=== PATIENT | female | born 1935 | race Caucasian/White ===

== ENCOUNTER 2021-02-02 10:24 | Inpatient (IN) ==
[2021-02-02] MEDS ORDERED: TYLENOL 500 MG TAB EXTRA STRENGTH PO PRN (11:30)
[2021-02-02 12:00] LABS: BASOPHILS # (AUTO) 0.1 X10^3/uL (0.0-0.1); BASOPHILS % (AUTO) 0.2 % (0.2-1.0); EOSINOPHILS % (AUTO) 0.1 % (0.9-2.9); HEMATOCRIT 34.5 % (36.0-47.0); HEMOGLOBIN 11.3 g/dL (12.0-16.0); LYMPHOCYTES # (AUTO) 1.5 X10^3/uL (1.3-2.9); LYMPHOCYTES % (AUTO) 5.8 % (21.0-51.0); MEAN CORPUSCULAR HEMOGLOBIN 28.4 pg (27.0-34.0); MEAN CORPUSCULAR HGB CONC 32.7 g/dL (33.0-35.0); MEAN CORPUSCULAR VOLUME 86.8 fL (80.0-100.0); MEAN PLATELET VOLUME 8.8 fL (7.4-11.0); MONOCYTES # (AUTO) 1.2 x10^3/uL (0.3-0.8); MONOCYTES % (AUTO) 4.7 % (0.0-13.0); NEUTROPHILS # (AUTO) 22.9 x10^3/uL (2.2-4.8); NEUTROPHILS % (AUTO) 89.2 % (42.0-75.0); PLATELET COUNT 360 X10^3/uL (150.0-450.0); RED BLOOD COUNT 3.98 X10^6/uL (3.5-5.4); WHITE BLOOD COUNT 25.7 X10^3/uL (3.6-10.0)
[2021-02-02] MEDS ORDERED: LEVAQUIN TAB 500 MG PO SCH (12:00)
[2021-02-02 12:13] LABS: PLATELET MORPHOLOGY COMMENT NORMAL (NORMAL)
[2021-02-02 12:24] LABS: ALBUMIN 2.4 g/dL (3.4-5.0); CALCIUM 9.5 mg/dL (8.5-10.1); CARBON DIOXIDE 29.5 mmol/L (21-32); COR CA(FOR HYPOALB) 10.8 mg/dL (8.5-10.1); CREATININE 1.23 mg/dL (0.55-1.02); TOTAL PROTEIN 7.6 g/dL (6.4-8.2)
[2021-02-02] MEDS ORDERED: NORCO 5/325 MG TAB ONE (15:27)
[2021-02-02] MEDS: NORCO 5/325 MG TAB PO PRN (15:30)
[2021-02-02 16:04] LABS: BILIRUBIN,URINE 1+ (NEGATIVE); BLOOD/HEMOGLOBIN,URINE 1+ (NEGATIVE); GLUCOSE, URINE NEGATIVE (NEGATIVE); KETONES,URINE 1+ (NEGATIVE); LEUKOCYTE ESTERASE ,URINE 1+ (NEGATIVE); NITRITES,URINE NEGATIVE (NEGATIVE); PROTEIN,URINE 2+ (NEGATIVE); UROBILINOGEN,URINE NORMAL (NORMAL)
[2021-02-02 16:26] LABS: APPEARANCE,URINE HAZY (CLEAR); COLOR,URINE DARK YELLOW (YELLOW)
[2021-02-02 16:28] LABS: SQUAMOUS EPITHELIAL CELL,UR MODERATE /HPF (NEGATIVE)
[2021-02-02 16:29] LABS: BACTERIA,URINE 2+ /HPF (NEGATIVE); CALCIUM OXALATE CRYSTALS,UR FEW /HPF (NEGATIVE); GRANULAR CASTS,URINE FEW /LPF (NEGATIVE); MUCUS,URINE FEW /HPF (NEGATIVE)
[2021-02-02] MEDS ORDERED: NEURONTIN CAP 100 MG PO PRN (20:05)
--- NOTE | 2021-02-02 20:17 | DR.H&P ---
H&P - History & Physical for Day of: H&P Date: 02/02/21 - Chief Complaint Chief Complaint: THE PATIENT IS A 85-YEAR-OLD WHITE FEMALE WHO IS A RESIDENT OF [place]. PATIENT HAD RECENT BLOOD WORK WITH WHITE BLOOD CELL COUNT OF 24.2. PATIENT DOES HAVE URINARY TRACT INFECTION AND HAS BEEN ON MACROBID SINCE 01/27/21. PATIENT DOES HAVE WANED TO THE SACRUM WHICH IS UNSTAGEABLE. PATIENT IS [facility]. pATIENT SUBSEQUENTLY ADMITTED FOR FURTHER EVALUATION AND MANAGEMENT. ON ASSESSMENT PATIENT IS COUGHING WHILE SIPPING ON LIQUIDS. PATIENT DOES RESPOND. URINE IS NOTED TO BE DARK AND CLOUDY WITH SEDIMENT IN TUBING. FAMILY IS AT BEDSIDE. DOES STATE THAT A CHILD SHE HAD A PENICILLIN ALLERGY WHERE IT HURT HER STOMACH BUT DENIED ANY OTHER SYMPTOMS. PATIENT DENIES ANY PAIN. - Past Medical History Past Medical History: Coronary Artery Disease, Hypertension, Dyslipidemia, Diabetes, Anxiety, Hypothyroidism, Anemia, GERD, Gout, CHF - Past Surgical History Surgical History: Ortho Surgery - Family History Family Medical History: Diabetes Mellitus, Cancer - Social History Does patient currently use any type of tobacco product: No Have you used tobacco products in the last 12 months: No Type of Tobacco Use: None Does any household member use tobacco: No Alcohol Use: None Drug Use: None Risks, benefits, and alternatives of opioids discussed: No Prescription drug monitoring program results: PDMP reviewed and no concerns identified - Medications Home Medications: aspirin Allergy (Verified 01/31/21 00:15) clarithromycin [From Biaxin] Allergy (Verified 01/31/21 00:15) Penicillins Allergy (Verified 01/31/21 00:15) CONTINUE taking the following medications ascorbic acid (vitamin C) [Vitamin C] 500 mg PO BID 02/02/21 [History] atorvastatin [Lipitor] 20 mg PO HS 02/02/21 [History] escitalopram oxalate [Lexapro] 5 mg PO HS 02/02/21 [History] nutritional supplements [Galdino] 1 ea PO DAILY 02/02/21 [History] zinc 50 mg PO DAILY 02/02/21 [History] - Review of Systems Constitutional: No Symptoms Reported Eyes: No Symptoms Reported ENT: No Symptoms Reported Respiratory: Cough Cardiovascular: No Symptoms Reported Gastrointestinal: No Symptoms Reported Genitourinary: No Symptoms Reported Musculoskeletal: No Symptoms Reported Skin: No Symptoms Reported Neurological: No Symptoms Reported - Physical Exam Vital Signs: Temperature 99.1 F Pulse Rate [Left Brachial] 108 Respiratory Rate 22 Blood Pressure [Left Arm] 109/57 O2 Sat by Pulse Oximetry 92 Oriented: Person Eyes: Normal Ear: Normal Nose: Normal Throat: Normal Respiratory: Clear Throughout Cardiovascular: Tachycardia : Other (DARK YELLOW WITH SEDIMENT) Auscultation: Bowel Sounds: Normal Palpation: Normal Tenderness: Normal Skin: Decreased Turgur, Wound (SACRUM UNSTAGEABLE ULCER) Musculoskeletal: Motor Deficit (WEAKNESS) Psychiatric: Normal Mood Description: Calm Affect: Normal Speech Pattern: Delayed - Assessment/Plan (1) Leukocytosis Status: Acute Plan: urine culture sensitive to Levaquin and ertapenem (2) Urinary tract infection Status: Acute Plan: Levaquin and ertapenem (3) Sacral decubitus ulcer Qualifiers: Pressure injury stage: unstageable Qualified Code(s): L89.150 - Pressure ulcer of sacral region, unstageable Status: Acute Plan: ertapenem IV. Surgical consult (4) Dehydration Status: Acute Plan: gentle IV hydration (5) Dysphagia Status: Acute Plan: consider barium swallow - Review H&P Reviewed: Yes Patient was examined?: Yes - Allergies Allergies/Adverse Reactions: Allergies Allergy/AdvReac Type Severity Reaction Status Date / Time aspirin Allergy Verified 01/31/21 00:15 clarithromycin [From Biaxin] Allergy Verified 01/31/21 00:15 Penicillins Allergy Verified 01/31/21 00:15
[2021-02-02] MEDS ORDERED: INVANZ INJ 1 GM VIAL 1 GM in NS 100 ML IV + SPIKE MINIBAG* 100 ML IV SCH (21:00)
[2021-02-02] MEDS ORDERED: LIPITOR TAB 20 MG PO SCH (21:00)
[2021-02-02] MEDS ORDERED: ESCITALOPRAM OXALATE 5 MG PO SCH (21:00)
[2021-02-02] MEDS: LEXAPRO PO SCH (21:14)
[2021-02-02] MEDS: NORCO 5/325 MG TAB PO SCH (21:14)
[2021-02-02] MEDS: COREG TAB 3.125 MG PO SCH (21:14)
[2021-02-02] MEDS: LIPITOR TAB 20 MG PO SCH (21:14)
[2021-02-02] MEDS: NS 1000 ML 1,000 ML IV SCH (21:15)
[2021-02-02] MEDS: SINGULAIR TAB 10 MG PO SCH (21:15)
[2021-02-02] MEDS: VITAMIN C PO SCH (21:15)
[2021-02-02] MEDS ORDERED: LEXAPRO ONE (21:20)
--- NOTE | 2021-02-02 22:15 | RAD ---
PROCEDURE: Chest X-ray 1 View .HISTORY: COUGH .TECHNIQUE: AP view .COMPARISON: 03/06/2020.TECHNICAL QUALITY: Satisfactory .FINDINGS:Normal size heart .Mediastinum and hilar regions show no masses or lymphadenopathy .Normal central vascularity .No pulmonary consolidation, masses, pleural fluid, or pneumothorax. Some interstitial prominence that is unchanged.No acute bony abnormality .IMPRESSION:1. No active cardiopulmonary disease .2. Unchanged mild interstitial fibrosis.Electronically signed by: Home Avila (Feb 02, 2021 22:13:34)
[2021-02-03] MEDS: NORCO 5/325 MG TAB PO PRN (04:08)
[2021-02-03] MEDS ORDERED: HumuLIN R ONE (05:57)
[2021-02-03] MEDS: HumuLIN R SUBCUT PRN ×2 (06:09→22:06)
[2021-02-03] MEDS: MAG-OX TAB PO SCH (08:37)
[2021-02-03] MEDS: VITAMIN C PO SCH ×2 (08:37→20:44)
[2021-02-03] MEDS: NORCO 5/325 MG TAB PO SCH ×4 (08:40→20:43)
[2021-02-03] MEDS: ZYLOPRIM PO SCH (08:40)
[2021-02-03 08:41] LABS: BASOPHILS # (AUTO) 0.2 X10^3/uL (0.0-0.1); BASOPHILS % (AUTO) 1.6 % (0.2-1.0); EOSINOPHILS # (AUTO) 0.2 x10^3/uL (0.0-0.2); EOSINOPHILS % (AUTO) 1.5 % (0.9-2.9); HEMATOCRIT 30.5 % (36.0-47.0); LYMPHOCYTES # (AUTO) 1.1 X10^3/uL (1.3-2.9); MEAN CORPUSCULAR HEMOGLOBIN 28.8 pg (27.0-34.0); MEAN CORPUSCULAR HGB CONC 32.9 g/dL (33.0-35.0); MEAN CORPUSCULAR VOLUME 87.6 fL (80.0-100.0); MEAN PLATELET VOLUME 8.8 fL (7.4-11.0); MONOCYTES # (AUTO) 1.1 x10^3/uL (0.3-0.8); MONOCYTES % (AUTO) 8.1 % (0.0-13.0); NEUTROPHILS # (AUTO) 10.7 x10^3/uL (2.2-4.8); NEUTROPHILS % (AUTO) 80.8 % (42.0-75.0); PLATELET COUNT 278 X10^3/uL (150.0-450.0); RED BLOOD COUNT 3.48 X10^6/uL (3.5-5.4); RED CELL DISTRIBUTION WIDTH 16.4 % (11.6-16.5); WHITE BLOOD COUNT 13.2 X10^3/uL (3.6-10.0)
[2021-02-03] MEDS: ZyrTEC TAB 10 MG PO SCH (08:41)
[2021-02-03] MEDS: ZESTRIL TAB 5 MG PO SCH (08:41)
[2021-02-03] MEDS: NexIUM PO SCH (08:41)
[2021-02-03] MEDS: ZINC SULFATE PO SCH (08:41)
[2021-02-03] MEDS: COREG TAB 3.125 MG PO SCH ×2 (08:42→20:45)
[2021-02-03] MEDS: SYNTHROID 25 mcg TAB PO SCH (08:42)
[2021-02-03 08:51] LABS: CALCIUM 8.6 mg/dL (8.5-10.1); CARBON DIOXIDE 27.7 mmol/L (21-32); COR CA(FOR HYPOALB) 10.2 mg/dL (8.5-10.1); CREATININE 1.14 mg/dL (0.55-1.02); TOTAL PROTEIN 6.6 g/dL (6.4-8.2)
[2021-02-03] MEDS ORDERED: PATIENT'S HOME MEDICATION (Magnesium Oxide 400 mg magnesium Tablet) PO SCH (09:00)
[2021-02-03] MEDS ORDERED: PATIENT'S HOME MEDICATION (Zinc 50 mg Tablet) PO SCH (09:00)
[2021-02-03] MEDS ORDERED: PATIENT'S HOME MEDICATION (Levocetirizine 5 mg tablet) PO SCH (09:00)
[2021-02-03] MEDS ORDERED: LEVAQUIN PREMIX IV 500 MG 500 MG/100 ML BAG IV SCH (09:00)
[2021-02-03] MEDS: PLAVIX PO SCH (10:00)
[2021-02-03 11:19] VITALS: BMI 23.6
[2021-02-03] MEDS: LEVAQUIN PREMIX IV 250 MG 250 MG/50 ML BAG IV SCH (14:00)
[2021-02-03] MEDS: NS 1000 ML 1,000 ML IV SCH (14:27)
--- NOTE | 2021-02-03 14:53 | DR.PROGNOT ---
Hospital Progress Notes - Progress Note for Day of: Progress Note Date: 02/03/21 - Chief Complaint Chief Complaint: no changes . frequent dysphagia and coughing while eating or drinking . no changes in sacral ulcer .. - Past Medical Family Social History Past Med/Fam/Surg Hx: No changes since H&P Allergies: Allergies aspirin Allergy (Verified 01/31/21 00:15) clarithromycin [From Biaxin] Allergy (Verified 01/31/21 00:15) Penicillins Allergy (Verified 01/31/21 00:15) - Review Of Systems ROS: No change since H&P - Vital Signs Vital Signs: Temperature 98.8 F Pulse Rate [Left Brachial] 104 Respiratory Rate 24 Blood Pressure [Left Arm] 132/69 O2 Sat by Pulse Oximetry 94 - Physical Exam Oriented: Person Eyes: Normal Ear: Normal Nose: Normal Throat: Normal Cardiovascular: Tachycardia : Other (DARK YELLOW WITH SEDIMENT) GI:Auscultation: Normal GI:Palpation: Normal GI: Tenderness: Normal Skin: Decreased Turgur, Wound (3 x 3 cm sacral ulcer stage 2 .. minimal drainage .no necrosis or abscess formation .) Musculoskeletal: Motor Deficit (WEAKNESS) Psychiatric: Normal Mood Description: Calm Affect: Normal Speech Pattern: Clear - Laboratory and Diagnostics Result Diagrams: 02/03/21 08:30 02/03/21 08:30 Labs: 02/02/21 15:48 Urine,Clean Catch Urine Culture - Preliminary Laboratory WBC 13.2 X10^3/uL (3.6-10.0) H D 02/03/21 08:30 RBC 3.48 X10^6/uL (3.5-5.4) L 02/03/21 08:30 Hgb 10.0 g/dL (12.0-16.0) L 02/03/21 08:30 Hct 30.5 % (36.0-47.0) L 02/03/21 08:30 MCV 87.6 fL (80.0-100.0) 02/03/21 08:30 MCH 28.8 pg (27.0-34.0) 02/03/21 08:30 MCHC 32.9 g/dL (33.0-35.0) L 02/03/21 08:30 RDW 16.4 % (11.6-16.5) 02/03/21 08:30 Plt Count 278 X10^3/uL (150.0-450.0) 02/03/21 08:30 Plt Count Comment Adequate (ADEQUATE) 02/02/21 11:45 MPV 8.8 fL (7.4-11.0) 02/03/21 08:30 Neut % (Auto) 80.8 % (42.0-75.0) H 02/03/21 08:30 Lymph % (Auto) 8.0 % (21.0-51.0) L 02/03/21 08:30 [place] % (Auto) 8.1 % (0.0-13.0) 02/03/21 08:30 Eos % (Auto) 1.5 % (0.9-2.9) 02/03/21 08:30 Baso % (Auto) 1.6 % (0.2-1.0) H 02/03/21 08:30 Neut # (Auto) 10.7 x10^3/uL (2.2-4.8) H 02/03/21 08:30 Lymph # (Auto) 1.1 X10^3/uL (1.3-2.9) L 02/03/21 08:30 [place] # (Auto) 1.1 x10^3/uL (0.3-0.8) H 02/03/21 08:30 Eos # (Auto) 0.2 x10^3/uL (0.0-0.2) 02/03/21 08:30 Baso # (Auto) 0.2 X10^3/uL (0.0-0.1) H 02/03/21 08:30 Absolute Nucleated RBC 0.1 /100WBC 02/03/21 08:30 Total Counted 100 02/02/21 11:45 Neutrophils % (Manual) 90 % (39-76) H 02/02/21 11:45 Lymphocytes % (Manual) 9 % (13-43) L 02/02/21 11:45 Monocytes % (Manual) 1 % (4-9) L 02/02/21 11:45 Plt Morphology Comment Normal (NORMAL) 02/02/21 11:45 RBC Morphology Normal (NORMAL) 02/02/21 11:45 Sodium 141 mmol/L (136-145) 02/03/21 08:30 Corrected Sodium 145 mmol/L (136-145) 02/03/21 08:30 Potassium 4.1 mmol/L (3.5-5.1) 02/03/21 08:30 Chloride 106 mmol/L (98-107) 02/03/21 08:30 Carbon Dioxide 27.7 mmol/L (21-32) 02/03/21 08:30 BUN 56 mg/dL (7-18) H 02/03/21 08:30 Creatinine 1.14 mg/dL (0.55-1.02) H 02/03/21 08:30 Est GFR (MDRD) Af Amer 58 (>60) L 02/03/21 08:30 Est GFR (MDRD) Non-Af 48 (>60) L 02/03/21 08:30 Glucose 271 mg/dL (65-99) H 02/03/21 08:30 POC Glucose (mg/dL) 221 mg/dL (65-99) H 02/03/21 11:06 Calcium 8.6 mg/dL (8.5-10.1) 02/03/21 08:30 Corrected Calcium 10.2 mg/dL (8.5-10.1) H 02/03/21 08:30 Total Bilirubin 0.30 mg/dL (0.2-1.0) 02/03/21 08:30 AST 21 Units/L (15-37) 02/03/21 08:30 ALT 18 Units/L (12-78) 02/03/21 08:30 Alkaline Phosphatase 152 Units/L (46-116) H 02/03/21 08:30 Total Protein 6.6 g/dL (6.4-8.2) 02/03/21 08:30 Albumin 2.0 g/dL (3.4-5.0) L 02/03/21 08:30 Globulin 4.6 g/dL (2.5-4.5) H 02/03/21 08:30 Albumin/Globulin Ratio 0.4 Ratio (1.1-2.1) L 02/03/21 08:30 Specimen Type Catherized urine 02/02/21 15:45 Urine Color Dark yellow (YELLOW) 02/02/21 15:45 Urine Appearance Hazy (CLEAR) 02/02/21 15:45 Urine pH 5.0 (5.0 - 8.0) 02/02/21 15:45 Ur Specific [place] 1.025 (1.000-1.030) 02/02/21 15:45 Urine Protein 2+ (NEGATIVE) 02/02/21 15:45 Urine Glucose (UA) Negative (NEGATIVE) 02/02/21 15:45 Urine Ketones 1+ (NEGATIVE) 02/02/21 15:45 Urine Occult Blood 1+ (NEGATIVE) 02/02/21 15:45 Urine Nitrite Negative (NEGATIVE) 02/02/21 15:45 Urine Bilirubin 1+ (NEGATIVE) 02/02/21 15:45 Urine Urobilinogen Normal (NORMAL) 02/02/21 15:45 Ur Leukocyte Esterase 1+ (NEGATIVE) 02/02/21 15:45 Urine RBC 3-5 /HPF (0-3) A 02/02/21 15:45 Urine WBC 3-5 /HPF (0-5) 02/02/21 15:45 Ur Squamous Epith Cells Moderate /HPF (NEGATIVE) 02/02/21 15:45 Calcium Oxalate Crystal Few /HPF (NEGATIVE) 02/02/21 15:45 Urine Bacteria 2+ /HPF (NEGATIVE) 02/02/21 15:45 Granular Casts Few /LPF (NEGATIVE) 02/02/21 15:45 Urine Mucus Few /HPF (NEGATIVE) 02/02/21 15:45 Ur Culture Indicated? Yes/culture set up 02/02/21 15:45 - Assessment and Plan 1: UTI , DM , sacral decubitus ulcer ,. possible aspiration . same local care , IV ATB . hydration and nutritional support . may need PEG feeding tube .. ( family is thinking about that ..Pt is DNR ) - Problem Patient Problems: Patient Problems Urinary tract infection (Acute) N39.0 Sacral decubitus ulcer (Acute) L89.159 Dehydration (Acute) E86.0 Leukocytosis (Acute) D72.829 Dysphagia (Acute) R13.10
[2021-02-03] MEDS: LOVENOX INJ 40 MG SYR SC SCH (15:11)
[2021-02-03] MEDS ORDERED: LEXAPRO ONE (19:58)
[2021-02-03] MEDS: SINGULAIR TAB 10 MG PO SCH (20:45)
[2021-02-03] MEDS: LEXAPRO PO SCH (20:45)
[2021-02-03] MEDS: LIPITOR TAB 20 MG PO SCH (20:45)
[2021-02-03] MEDS: SNACK - Diabetic Appropriate PO SCH (20:46)
[2021-02-03] MEDS ORDERED: NS 50 ML IV 50 ML IV ONE (22:22)
[2021-02-03] MEDS ORDERED: INVANZ INJ 1 GM VIAL ONE (22:22)
[2021-02-03] MEDS: INVANZ INJ 1 GM VIAL 0.5 GM in NS 50 ML IV 50 ML IV SCH (22:36)
[2021-02-04] MEDS: NS 1000 ML 1,000 ML IV SCH ×2 (05:24→18:26)
[2021-02-04 06:16] LABS: BASOPHILS # (AUTO) 0.1 X10^3/uL (0.0-0.1); BASOPHILS % (AUTO) 0.7 % (0.2-1.0); EOSINOPHILS # (AUTO) 0.3 x10^3/uL (0.0-0.2); EOSINOPHILS % (AUTO) 5.1 % (0.9-2.9); HEMATOCRIT 32.8 % (36.0-47.0); HEMOGLOBIN 10.8 g/dL (12.0-16.0); LYMPHOCYTES % (AUTO) 15.1 % (21.0-51.0); MEAN CORPUSCULAR HEMOGLOBIN 28.9 pg (27.0-34.0); MEAN CORPUSCULAR VOLUME 87.7 fL (80.0-100.0); MEAN PLATELET VOLUME 9.1 fL (7.4-11.0); MONOCYTES # (AUTO) 0.7 x10^3/uL (0.3-0.8); MONOCYTES % (AUTO) 10.4 % (0.0-13.0); NEUTROPHILS # (AUTO) 4.7 x10^3/uL (2.2-4.8); NEUTROPHILS % (AUTO) 68.7 % (42.0-75.0); PLATELET COUNT 230 X10^3/uL (150.0-450.0); RED BLOOD COUNT 3.74 X10^6/uL (3.5-5.4); RED CELL DISTRIBUTION WIDTH 16.5 % (11.6-16.5); WHITE BLOOD COUNT 6.8 X10^3/uL (3.6-10.0)
[2021-02-04] MEDS: HumuLIN R SUBCUT PRN ×3 (06:20→22:41)
[2021-02-04 06:34] LABS: ALANINE AMINOTRANSFERASE 22 Units/L (12-78); ALBUMIN 1.9 g/dL (3.4-5.0); ALKALINE PHOSPHATASE 136 Units/L (46-116); ASPARTATE AMINO TRANSFERASE 23 Units/L (15-37); BLOOD UREA NITROGEN 29 mg/dL (7-18); CALCIUM 8.5 mg/dL (8.5-10.1); CHLORIDE 109 mmol/L (98-107); COR CA(FOR HYPOALB) 10.2 mg/dL (8.5-10.1); COR NA(FOR HYPERGLY) 144 mmol/L (136-145); CREATININE 0.71 mg/dL (0.55-1.02); SODIUM 142 mmol/L (136-145); TOTAL PROTEIN 6.7 g/dL (6.4-8.2); eGFR NON BLACK RACES > 60 (>60)
[2021-02-04] MEDS: LOVENOX INJ 40 MG SYR SC SCH (10:10)
[2021-02-04] MEDS: COREG TAB 3.125 MG PO SCH ×2 (10:11→20:58)
[2021-02-04] MEDS: MAG-OX TAB PO SCH (10:11)
[2021-02-04] MEDS: NexIUM PO SCH (10:12)
[2021-02-04] MEDS: PLAVIX PO SCH (10:12)
[2021-02-04] MEDS: ZESTRIL TAB 5 MG PO SCH (10:13)
[2021-02-04] MEDS: VITAMIN C PO SCH ×2 (10:13→20:58)
[2021-02-04] MEDS: SYNTHROID 25 mcg TAB PO SCH (10:13)
[2021-02-04] MEDS: ZYLOPRIM PO SCH (10:14)
[2021-02-04] MEDS: ZINC SULFATE PO SCH (10:14)
[2021-02-04] MEDS: ZyrTEC TAB 10 MG PO SCH (10:15)
[2021-02-04] MEDS: NORCO 5/325 MG TAB PO SCH ×4 (10:15→21:00)
[2021-02-04] MEDS ORDERED: BACTROBAN TOPICAL OINT ONE (13:10)
[2021-02-04] MEDS: LEVAQUIN PREMIX IV 250 MG 250 MG/50 ML BAG IV SCH (14:19)
[2021-02-04] MEDS ORDERED: LEXAPRO ONE (20:18)
[2021-02-04] MEDS: SNACK - Diabetic Appropriate PO SCH (20:35)
[2021-02-04] MEDS: SINGULAIR TAB 10 MG PO SCH (20:59)
[2021-02-04] MEDS: LEXAPRO PO SCH (20:59)
[2021-02-04] MEDS: LIPITOR TAB 20 MG PO SCH (21:01)
[2021-02-04] MEDS ORDERED: NS 50 ML IV 50 ML IV ONE (22:16)
[2021-02-04] MEDS ORDERED: INVANZ INJ 1 GM VIAL ONE (22:16)
[2021-02-04] MEDS: INVANZ INJ 1 GM VIAL 0.5 GM in NS 50 ML IV 50 ML IV SCH (22:36)
[2021-02-05] MEDS: NS 1000 ML 1,000 ML IV SCH (06:03)
[2021-02-05 06:14] LABS: BASOPHILS # (AUTO) 0.1 X10^3/uL (0.0-0.1); EOSINOPHILS # (AUTO) 0.3 x10^3/uL (0.0-0.2); EOSINOPHILS % (AUTO) 5.1 % (0.9-2.9); HEMOGLOBIN 10.5 g/dL (12.0-16.0); LYMPHOCYTES # (AUTO) 0.9 X10^3/uL (1.3-2.9); LYMPHOCYTES % (AUTO) 16.6 % (21.0-51.0); MEAN CORPUSCULAR HGB CONC 33.9 g/dL (33.0-35.0); MEAN CORPUSCULAR VOLUME 85.7 fL (80.0-100.0); MEAN PLATELET VOLUME 8.7 fL (7.4-11.0); MONOCYTES # (AUTO) 0.7 x10^3/uL (0.3-0.8); MONOCYTES % (AUTO) 12.6 % (0.0-13.0); NEUTROPHILS # (AUTO) 3.6 x10^3/uL (2.2-4.8); NEUTROPHILS % (AUTO) 64.7 % (42.0-75.0); PLATELET COUNT 228 X10^3/uL (150.0-450.0); RED BLOOD COUNT 3.62 X10^6/uL (3.5-5.4); RED CELL DISTRIBUTION WIDTH 15.8 % (11.6-16.5); WHITE BLOOD COUNT 5.6 X10^3/uL (3.6-10.0)
[2021-02-05 06:25] LABS: ALANINE AMINOTRANSFERASE 22 Units/L (12-78); ALBUMIN 1.9 g/dL (3.4-5.0); ALKALINE PHOSPHATASE 137 Units/L (46-116); ASPARTATE AMINO TRANSFERASE 19 Units/L (15-37); BLOOD UREA NITROGEN 12 mg/dL (7-18); CALCIUM 8.2 mg/dL (8.5-10.1); CARBON DIOXIDE 26.7 mmol/L (21-32); CHLORIDE 103 mmol/L (98-107); COR CA(FOR HYPOALB) 9.9 mg/dL (8.5-10.1); COR NA(FOR HYPERGLY) 141 mmol/L (136-145); CREATININE 0.55 mg/dL (0.55-1.02); SODIUM 139 mmol/L (136-145); TOTAL PROTEIN 6.5 g/dL (6.4-8.2); eGFR NON BLACK RACES > 60 (>60)
[2021-02-05] MEDS: COREG TAB 3.125 MG PO SCH (08:09)
[2021-02-05] MEDS: LOVENOX INJ 40 MG SYR SC SCH (08:09)
[2021-02-05] MEDS: MAG-OX TAB PO SCH (08:10)
[2021-02-05] MEDS: NORCO 5/325 MG TAB PO SCH (08:11)
[2021-02-05] MEDS: NexIUM PO SCH (08:11)
[2021-02-05] MEDS: PLAVIX PO SCH (08:11)
[2021-02-05] MEDS: VITAMIN C PO SCH (08:12)
[2021-02-05] MEDS: SYNTHROID 25 mcg TAB PO SCH (08:12)
[2021-02-05] MEDS: ZINC SULFATE PO SCH (08:13)
[2021-02-05] MEDS: ZyrTEC TAB 10 MG PO SCH (08:13)
[2021-02-05] MEDS: ZYLOPRIM PO SCH (08:13)
[2021-02-05] MEDS: ZESTRIL TAB 5 MG PO SCH (08:13)
[2021-02-05 10:22] VITALS: BP 160/74
[2021-02-05] MEDS ORDERED: VIBRAMYCIN PO SCH (21:00)
[2021-02-05] MEDS ORDERED: REQUIP PO SCH (21:00)
== END 2021-02-05 12:00 | DRG 690 ==
LOC: MED/SURG 11:10
PROVIDERS: ADMIT Internal Medicine; ATTEND Internal Medicine
DX: N39.0 Urinary tract infection, site not specified; E78.2 Mixed hyperlipidemia; R13.11 Dysphagia, oral phase; E86.0 Dehydration; B96.4 Proteus (mirabilis) (morganii) as the cause of diseases classified elsewhere; I10 Essential (primary) hypertension; K21.9 Gastro-esophageal reflux disease without esophagitis; E11.622 Type 2 diabetes mellitus with other skin ulcer; L89.150 Pressure ulcer of sacral region, unstageable; I25.10 Atherosclerotic heart disease of native coronary artery without angina pectoris; E03.8 Other specified hypothyroidism; B95.62 Methicillin resistant Staphylococcus aureus infection as the cause of diseases classified elsewhere; E11.65 Type 2 diabetes mellitus with hyperglycemia; F41.8 Other specified anxiety disorders

== ENCOUNTER 2022-09-04 08:27 | Inpatient (IN) ==
--- NOTE | 2022-09-04 08:46 | DR.AMS ---
HPI Time Seen Time Seen by Provider: 09/04/22 08:46 Complaint Cheif Complaint Doctors Comments: 86 y/o [place] sent from the [place] for evaluation. Found to have altered mental status this am. Pt somnolent, difficult to arouse. Running a low grade temp. Pt unable to offer complaints. No report of vomiting, diarrhea from the [place]. Pt is a DNR. COVID-19 Coronavirus risk:travel/contact w/high risk person: No Has patient experienced Coronavirus symptoms: No Reviewed Nurses Notes Reviewed: Yes Source History Provided: Shelter Mode of Arrival Mode of Arrival: Stretcher Timing Symptom Onset: Known Onset of Symptoms Start Date: 09/04/22 Onset of Symptoms Start Time: 08:00 PMH PMH Past Medical History: Anemia, Anxiety, CHF, Coronary Artery Disease, Diabetes, Dyslipidemia, GERD, Gout, Hypertension and Hypothyroidism Past Surgical History: Yes Surgical History: Ortho Surgery Family History Family Medical History: Diabetes Mellitus and Cancer Social History Do you use any recreational Drugs:: No Travel Risk Coronavirus risk:travel/contact w/high risk person: No Has patient experienced Coronavirus symptoms: No Infectious screening Isolation: Standard ROS Review of Systems Unable to Obtain Due To: Altered mental status PE Vitals Vital Signs: Temp Pulse Resp BP BP Pulse Ox O2 Del Method 05/08/21 07:35 167/74 02/05/21 09:10 09/04/22 09:12 130 H 31 H 76/51 95 Nasal Cannula 09/04/22 08:57 102.9 F H 133 H 24 95 Nasal Cannula 09/04/22 08:42 136 H 26 H 86/51 94 L Nasal Cannula 09/04/22 09:15 16 09/04/22 09:00 102.9 F H 09/04/22 08:39 99.1 F 136 H 24 88/52 94 L Nasal Cannula 04/27/22 10:30 130/73 O2 Flow Rate FiO2 05/08/21 07:35 02/05/21 09:10 28 09/04/22 09:12 2 09/04/22 08:57 2 09/04/22 08:42 2 09/04/22 09:15 09/04/22 09:00 09/04/22 08:39 04/27/22 10:30 General General Appearance: Obtunded (does not respond to verbal or noxious sti mulation.) Respiratory Respiratory Exam: Normal Lung Sounds Bilat and Other (tachypnea) Cardiovascular Cardiovascular Exam: Regular Rate, Normal Rhythm, Tachycardia and Normal Heart Sounds Abdominal Exam Abdominal Exam: Normal Bowel Sounds and Soft; negative Tenderness Extremities Extremities Exam: Edema (mild, lower exts) Skin Skin Exam: Warm and Dry COURSE Treatment Treatment: 86 y/o female sent from [place]. + tachycardia, low BP, altered MS. W/u initiated. Pt given IV fluids. 1045 - WBC elevated , 33k. U/a with TNTC WBCs. Rest of labs acceptable. Lactic, bicarb ok. Givne IV rocephin. Pulse, BP improving. Pt now yelling out periodically, agitated. Given IV lorazepam. Discus sed with Dr Bingham, will admit. ROR Labs Reviewed Laboratory Results Reviewed?: Yes Result Diagrams: 09/04/22 08:55 09/04/22 08:55 Laboratory: WBC 33.4 X10^3/uL (3.6-10.0) H* 09/04/22 08:55 RBC 3.90 X10^6/uL (3.5-5.4) 09/04/22 08:55 Hgb 10.8 g/dL (12.0-16.0) L 09/04/22 08:55 Hct 33.6 % (36.0-47.0) L 09/04/22 08:55 MCV 86.1 fL (80.0-100.0) 09/04/22 08:55 MCH 27.7 pg (27.0-34.0) 09/04/22 08:55 MCHC 32.2 g/dL (33.0-35.0) L 09/04/22 08:55 RDW 16.0 % (11.6-16.5) 09/04/22 08:55 Plt Count 289 X10^3/uL (150.0-450.0) 09/04/22 08:55 Plt Count Comment Adequate (ADEQUATE) 09/04/22 08:55 MPV 8.9 fL (7.4-11.0) 09/04/22 08:55 Neut % (Auto) 89.3 % (42.0-75.0) H 09/04/22 08:55 Lymph % (Auto) 4.5 % (21.0-51.0) L 09/04/22 08:55 [place] % (Auto) 5.9 % (0.0-13.0) 09/04/22 08:55 Eos % (Auto) 0.1 % (0.9-2.9) L 09/04/22 08:55 Baso % (Auto) 0.2 % (0.2-1.0) 09/04/22 08:55 Neut # (Auto) 29.8 x10^3/uL (2.2-4.8) H 09/04/22 08:55 Lymph # (Auto) 1.5 X10^3/uL (1.3-2.9) 09/04/22 08:55 [place] # (Auto) 2.0 x10^3/uL (0.3-0.8) H 09/04/22 08:55 Eos # (Auto) 0.0 x10^3/uL (0.0-0.2) 09/04/22 08:55 Baso # (Auto) 0.1 X10^3/uL (0.0-0.1) 09/04/22 08:55 Absolute Nucleated RBC 0.0 /100WBC 09/04/22 08:55 Total Counted 100 09/04/22 08:55 Neutrophils % (Manual) 85 % (39-76) H 09/04/22 08:55 Band Neutrophils % 5 % (0-10) 09/04/22 08:55 Lymphocytes % (Manual) 5 % (13-43) L 09/04/22 08:55 Monocytes % (Manual) 4 % (4-9) 09/04/22 08:55 Metamyelocytes % 1 09/04/22 08:55 Plt Morphology Comment Normal (NORMAL) 09/04/22 08:55 RBC Morphology Normal (NORMAL) 09/04/22 08:55 Sodium 133 mmol/L (136-145) L 09/04/22 08:55 Corrected Sodium 134 mmol/L (136-145) L 09/04/22 08:55 Potassium 4.5 mmol/L (3.5-5.1) 09/04/22 08:55 Chloride 99 mmol/L (98-107) 09/04/22 08:55 Carbon Dioxide 27.0 mmol/L (21-32) 09/04/22 08:55 BUN 42 mg/dL (7-18) H 09/04/22 08:55 Creatinine 1.02 mg/dL (0.55-1.02) 09/04/22 08:55 Est GFR (MDRD) Af Amer > 60 (>60) 09/04/22 08:55 Est GFR (MDRD) Non-Af 55 (>60) L 09/04/22 08:55 Glucose 162 mg/dL (65-99) H 09/04/22 08:55 Lactic Acid 1.7 mmol/L (0.4-2.0) 09/04/22 08:55 Calcium 8.9 mg/dL (8.5-10.1) 09/04/22 08:55 Corrected Calcium 10.1 mg/dL (8.5-10.1) 09/04/22 08:55 Total Bilirubin 0.50 mg/dL (0.2-1.0) 09/04/22 08:55 AST 33 Units/L (15-37) 09/04/22 08:55 ALT 19 Units/L (12-78) 09/04/22 08:55 Alkaline Phosphatase 96 Units/L (46-116) 09/04/22 08:55 Total Protein 7.9 g/dL (6.4-8.2) 09/04/22 08:55 Albumin 2.5 g/dL (3.4-5.0) L 09/04/22 08:55 Globulin 5.4 g/dL (2.5-4.5) H 09/04/22 08:55 Albumin/Globulin Ratio 0.5 Ratio (1.1-2.1) L 09/04/22 08:55 Specimen Type Catherized urine 09/04/22 09:05 Urine Color Yellow (YELLOW) 09/04/22 09:05 Urine Appearance Cloudy (CLEAR) 09/04/22 09:05 Urine pH 6.0 (5.0 - 8.0) 09/04/22 09:05 Ur Specific [place] 1.020 (1.000-1.030) 09/04/22 09:05 Urine Protein 3+ (NEGATIVE) 09/04/22 09:05 Urine Glucose (UA) Negative (NEGATIVE) 09/04/22 09:05 Urine Ketones Negative (NEGATIVE) 09/04/22 09:05 Urine Blood 4+ (NEGATIVE) 09/04/22 09:05 Urine Nitrite Negative (NEGATIVE) 09/04/22 09:05 Urine Bilirubin Negative (NEGATIVE) 09/04/22 09:05 Urine Urobilinogen Normal (NORMAL) 09/04/22 09:05 Ur Leukocyte Esterase 3+ (NEGATIVE) 09/04/22 09:05 Urine RBC 5-10 /HPF (0-3) A 09/04/22 09:05 Urine WBC Tntc /HPF (0-5) A 09/04/22 09:05 Ur Squamous Epith Cells Rare /HPF (NEGATIVE) 09/04/22 09:05 Amorphous Sediment 2+ /HPF (NEGATIVE) 09/04/22 09:05 Urine Bacteria 1+ /HPF (NEGATIVE) 09/04/22 09:05 Ur Culture Indicated? Yes/culture set up 09/04/22 09:05 SARS CoV-2 RNA Rapid VANI Negative (NEGATIVE) 09/04/22 10:17 see comments under "Course" Opioid Opioid Risk Tool Age (Isaak box if 16-45): No History of Preadolescent Sexual Abuse: No Total: 0 Total Score Risk Category: Low Risk Copyright: Owen SOUZA predicting aberrant behaviors Discharge Plan Discharge Plan Patient Disposition: HOME, SELF-CARE Condition: Stable Prescriptions: No Action hydrocodone-acetaminophen [[place]] 5-325 mg Tablet 1 tab PO QID clopidogrel 75 mg tablet 75 mg PO DAILY allopurinol 100 mg tablet 100 mg PO DAILY carvedilol 3.125 mg tablet 3.125 mg PO BID esomeprazole magnesium 40 mg capsule,delayed release(DR/EC) 40 mg PO DAILY montelukast 10 mg tablet 10 mg PO HS gabapentin 100 mg capsule 200 mg PO Q12H PRN Janumet 50-500 mg tablet 1 tab PO BID Rx Instructions: 50-500mg bid levocetirizine 5 mg tablet 5 mg PO DAILY magnesium oxide 400 mg magnesium Tablet 400 mg PO DAILY levothyroxine [Synthroid] 25 mcg Tablet 25 mcg PO DAILY escitalopram oxalate [Lexapro] 5 mg Tablet 5 mg PO HS atorvastatin [Lipitor] 20 mg Tablet 20 mg PO HS ascorbic acid (vitamin C) [Vitamin C] 500 mg Tablet 500 mg PO BID zinc 50 mg Tablet 50 mg PO DAILY cyclobenzaprine 10 mg tablet 1 tab PO BID PRN Rx Instructions: 5 mg tab levofloxacin [Levaquin] 250 mg Tablet 250 mg PO QDAY Chloraseptic Throat [place] 1.4 % aerosol,spray 3 spray MUCOUS MEMBRANE ONCE PRN (Reason: Sore Throat) Label Comments: [NO ORIGINAL SIG] Rx Instructions: every 2 hrs prn fentanyl 12 mcg/hr patch 72 hour 1 patch topical Q3D Label Comments: last placed on 09/02/22 baclofen 5 mg tablet 5 tab PO TID methenamine hippurate 1 gram Tablet 1 g PO BID Rx Instructions: ltc give 1mg by mouth bid pantoprazole [Protonix] 40 mg Tablet,Delayed Release (Dr/Ec) 40 mg PO QDAY olopatadine [Pataday Twice Daily Relief] 0.1 % Drops 1 drp OPHTHALMIC (EYE) DAILY Rx Instructions: separate doses by at least 6-8 hours oxycodone 5 mg tablet 5 mg PO Q4HR Rx Instructions: 1 tab 6 times a day related to pain ascorbic acid (vitamin C) 25 mg Tablet 25 mg PO BID Ferrocite Plus 106 mg iron- 1 mg Capsule 1 cap PO QDAY Glucerna 1.5 Valdo 0.08-1.5 gram-kcal/mL Liquid 1 ea PO BID Rx Instructions: 1 can bid Orders to Discharge Patient Discharge Orders: Transfer (Routine); Ordered 09/04/22 Ordered By: Stephen Rousseau
[2022-09-04] MEDS ORDERED: NS 500 ML IV 500 ML IV ONE ×4 (08:47→16:42)
[2022-09-04] MEDS ORDERED: TYLENOL SUPP 650 MG PR ONE (08:59)
[2022-09-04] MEDS ORDERED: TYLENOL SUPP 325 MG ONE (09:00)
[2022-09-04 09:23] LABS: BASOPHILS # (AUTO) 0.1 X10^3/uL (0.0-0.1); EOSINOPHILS % (AUTO) 0.1 % (0.9-2.9); HEMOGLOBIN 10.8 g/dL (12.0-16.0); LYMPHOCYTES # (AUTO) 1.5 X10^3/uL (1.3-2.9)
[2022-09-04 09:23] LABS: BILIRUBIN,URINE NEGATIVE (NEGATIVE); BLOOD/HEMOGLOBIN,URINE 4+ (NEGATIVE); GLUCOSE, URINE NEGATIVE (NEGATIVE); KETONES,URINE NEGATIVE (NEGATIVE); LEUKOCYTE ESTERASE ,URINE 3+ (NEGATIVE); NITRITES,URINE NEGATIVE (NEGATIVE); PROTEIN,URINE 3+ (NEGATIVE); UROBILINOGEN,URINE NORMAL (NORMAL)
[2022-09-04 09:24] LABS: APPEARANCE,URINE CLOUDY (CLEAR); COLOR,URINE YELLOW (YELLOW)
[2022-09-04 09:27] LABS: BASOPHILS % (AUTO) 0.2 % (0.2-1.0); HEMATOCRIT 33.6 % (36.0-47.0); LYMPHOCYTES % (AUTO) 4.5 % (21.0-51.0); MEAN CORPUSCULAR HEMOGLOBIN 27.7 pg (27.0-34.0); MEAN CORPUSCULAR HGB CONC 32.2 g/dL (33.0-35.0); MEAN CORPUSCULAR VOLUME 86.1 fL (80.0-100.0); MEAN PLATELET VOLUME 8.9 fL (7.4-11.0); MONOCYTES % (AUTO) 5.9 % (0.0-13.0); NEUTROPHILS # (AUTO) 29.8 x10^3/uL (2.2-4.8); NEUTROPHILS % (AUTO) 89.3 % (42.0-75.0)
[2022-09-04 09:33] LABS: WHITE BLOOD COUNT 33.4 X10^3/uL (3.6-10.0)
[2022-09-04 09:34] LABS: ALANINE AMINOTRANSFERASE 19 Units/L (12-78); ALBUMIN 2.5 g/dL (3.4-5.0); ALKALINE PHOSPHATASE 96 Units/L (46-116); ASPARTATE AMINO TRANSFERASE 33 Units/L (15-37); BLOOD UREA NITROGEN 42 mg/dL (7-18); CALCIUM 8.9 mg/dL (8.5-10.1); CHLORIDE 99 mmol/L (98-107); COR CA(FOR HYPOALB) 10.1 mg/dL (8.5-10.1); COR NA(FOR HYPERGLY) 134 mmol/L (136-145); CREATININE 1.02 mg/dL (0.55-1.02); SODIUM 133 mmol/L (136-145); TOTAL PROTEIN 7.9 g/dL (6.4-8.2); eGFR NON BLACK RACES 55 (>60)
[2022-09-04 09:35] LABS: BACTERIA,URINE 1+ /HPF (NEGATIVE); SQUAMOUS EPITHELIAL CELL,UR RARE /HPF (NEGATIVE)
[2022-09-04 09:38] LABS: LACTIC ACID 1.7 mmol/L (0.4-2.0)
[2022-09-04 09:51] LABS: BAND NEUTROPHILS % 5 % (0-10); METAMYELOCYTES % 1; PLATELET MORPHOLOGY COMMENT NORMAL (NORMAL)
[2022-09-04] MEDS ORDERED: ROCEPHIN VIAL 1 GRAM IV ONE (10:14)
[2022-09-04] MEDS ORDERED: ROCEPHIN VIAL 1 GRAM ONE (10:18)
[2022-09-04] MEDS ORDERED: ATIVAN INJ 2 MG VIAL IVP ONE (10:44)
[2022-09-04] MEDS ORDERED: ATIVAN INJ 2 MG VIAL ONE (10:46)
[2022-09-04] MEDS ORDERED: D5 1/2 NS 1,000 ML 1,000 ML IV ONE (14:56)
--- NOTE | 2022-09-04 14:58 | RAD ---
HISTORYams, feverSTUDYCHEST, 1 [id number]/25/2021FINDINGSLINES AND TUBES: Left-sided chest wall port is in stable position.HEART/ PULMONARY VASCULATURE: No significant abnormalityLUNGS/ PLEURA: Mildly diminished lung volumes. There is patchy airspace consolidation throughout the right lung, most pronounced within the right mid upper lung. The left lung appears clear of infiltrate. No sizable pleural effusion. No pneumothoraxOTHER: NoneIMPRESSIONFindings most consistent with pneumonia of the right lung.Electronically signed by: Saturnino Stein (Sep 04, 2022 14:57:19)
[2022-09-04] MEDS ORDERED: D5 1/2 NS 1,000 ML 1,000 ML IV SCH (16:00)
[2022-09-04] MEDS: D5 1/2 NS 1,000 ML 1,000 ML IV SCH (16:28)
[2022-09-04] MEDS: ROCEPHIN VIAL 1 GRAM 1 G in NS 100 ML IV 100 ML IV SCH (17:02)
[2022-09-04] MEDS: LEVOPHED 8 MG/250 ML IV *PREMIX 8 MG/250 ML PLAST..BAG IV PRN (17:55)
[2022-09-04] MEDS: TOBRAMYCIN SULFATE 80 MG in NS 100 ML IV 98 ML IV SCH ×2 (18:08→21:20)
--- NOTE | 2022-09-04 18:27 | DR.H&P ---
H&P - History & Physical for Day of: H&P Date: 09/04/22 - Chief Complaint Chief Complaint: AMS - History of Present Illness History of Present Illness: 86 y/o female admitted with AMS, sepsis with hypotension. Pt has been treated with agressive IV hydration, levophed for blood pressure control, continuous cardiac monitoring and supplemental o2. Pt has cultures obtained on admission, chest with resp therapy. pt is on IV rocephin and tobramycin at this time. - Past Medical History Past Medical History: Coronary Artery Disease, Hypertension, Dyslipidemia, Diabetes, Anxiety, Hypothyroidism, Anemia, GERD, Gout, CHF - Past Surgical History Surgical History: Abdominal Surgery, Ortho Surgery - Family History Family Medical History: Diabetes Mellitus, Cancer - Social History Does patient currently use any type of tobacco product: No Have you used tobacco products in the last 12 months: No Type of Tobacco Use: None Alcohol Use: None - Medications Home Medications: aspirin Allergy (Unknown, Unverified 09/04/22 08:36) clarithromycin [From Biaxin] Allergy (Unknown, Unverified 09/04/22 08:36) Penicillins Allergy (Unknown, Unverified 09/04/22 08:36) CONTINUE taking the following medications ascorbic acid (vitamin C) 25 mg tablet 25 mg PO BID 09/04/22 [History] baclofen 5 mg tablet 5 tab PO TID 09/04/22 [History] cyclobenzaprine 10 mg tablet 1 tab PO BID PRN 09/04/22 [History] fentanyl 12 mcg/hr transdermal patch 1 patch topical Q3D 09/04/22 [History] iron-folic acid-multivitamin, mineral comb#15 106 mg iron-1 mg capsule 1 cap PO QDAY 09/04/22 [History] levofloxacin 250 mg tablet 250 mg PO QDAY 09/04/22 [History] methenamine hippurate 1 gram tablet 1 g PO BID 09/04/22 [History] nutrition tx glu intol,lac-free,soy-fiber 0.08 gram-1.5 kcal/mL liquid (Glucerna 1.5 Valdo) 1 ea PO BID 09/04/22 [History] olopatadine 0.1 % eye drops (Pataday Twice Daily Relief) 1 drp ophthalmic (eye) DAILY 09/04/22 [History] oxycodone 5 mg tablet 5 mg PO Q4HR 09/04/22 [History] pantoprazole 40 mg tablet,delayed release (Protonix) 40 mg PO QDAY 09/04/22 [History] phenol 1.4 % mucosal aerosol spray (Chloraseptic Throat [place]) 3 spray mucous m embrane ONCE PRN Sore Throat 09/04/22 [History] - Review of Systems Constitutional: Weakness, Malaise Eyes: No Symptoms Reported ENT: No Symptoms Reported Respiratory: Shortness of Breath Cardiovascular: No Symptoms Reported Gastrointestinal: No Symptoms Reported Genitourinary: Incontinence Musculoskeletal: Shoulder Pain, Back Pain, Leg Pain Skin: Wound Neurological: Other (UNRESPONSIVE) - Physical Exam Vital Signs: Temperature 97.3 F Pulse Rate [Left Brachial] 103 Pulse Rate 101 Respiratory Rate 22 Blood Pressure [Left Arm] 69/45 Blood Pressure 85/53 O2 Sat by Pulse Oximetry 93 Oriented: Unable to test Nose: Normal Throat: Normal Respiratory: Diminished Throughout Cardiovascular: Tachycardia : Normal Auscultation: Bowel Sounds: Normal Palpation: Normal Tenderness: Normal Skin: Decreased Turgur, Wound Musculoskeletal: Motor Deficit Speech Pattern: Aphasic - Assessment/Plan (1) Sepsis associated hypotension Status: Acute Plan: ADMIT, ICU, CONTINUOUS CARDIAC MONITORING. BLOOD URINE CULTURES OBTAINED ON ADMISSION. CXR ON ADMISSION, SUPPLEMENTAL O2. IV ANTIBIOTICS, RESP THERAPY. STRICT I&OS (2) Altered mental status Status: Acute (3) Urinary tract infection Status: Acute (4) Type 2 diabetes mellitus Status: None (5) Hypothyroidism Status: None - Allergies Allergies/Adverse Reactions: Allergies Allergy/AdvReac Type Severity Reaction Status Date / Time aspirin Allergy Unknown Verified 09/04/22 20:55 clarithromycin [From Biaxin] Allergy Unknown Verified 09/04/22 20:56 Penicillins Allergy Unknown Verified 09/04/22 20:56
[2022-09-04] MEDS ORDERED: [UNRECOGNIZED DRUG - OTHER] PO SCH (21:00)
[2022-09-04] MEDS ORDERED: METFORMIN PO SCH (21:00)
[2022-09-04] MEDS ORDERED: NUT TX GLUC INTOL LF SOY FIBER PO SCH (21:00)
[2022-09-04] MEDS ORDERED: SITAGLIPTIN PO SCH (21:00)
[2022-09-04] MEDS: LEXAPRO PO SCH (21:09)
[2022-09-04] MEDS: LIPITOR TAB 20 MG PO SCH (21:09)
[2022-09-04] MEDS: HIPREX PO SCH (21:09)
[2022-09-04] MEDS: COREG TAB 3.125 MG PO SCH (21:09)
[2022-09-04] MEDS: SINGULAIR TAB 10 MG PO SCH (21:10)
[2022-09-04] MEDS: DUONEB 0.5 MG/3 MG (3 mL) NEB SCH (21:50)
[2022-09-04] MEDS: PULMICORT NEB TX 0.5 MG NEB SCH (21:50)
[2022-09-05] MEDS: D5 1/2 NS 1,000 ML 1,000 ML IV SCH ×3 (04:47→20:08)
[2022-09-05 04:51] LABS: BASOPHILS # (AUTO) 0.1 X10^3/uL (0.0-0.1); BASOPHILS % (AUTO) 0.3 % (0.2-1.0); EOSINOPHILS # (AUTO) 0.1 x10^3/uL (0.0-0.2); EOSINOPHILS % (AUTO) 0.2 % (0.9-2.9); HEMATOCRIT 30.2 % (36.0-47.0); HEMOGLOBIN 9.9 g/dL (12.0-16.0); LYMPHOCYTES # (AUTO) 3.3 X10^3/uL (1.3-2.9); LYMPHOCYTES % (AUTO) 7.9 % (21.0-51.0); MEAN CORPUSCULAR HEMOGLOBIN 27.9 pg (27.0-34.0); MEAN CORPUSCULAR HGB CONC 32.7 g/dL (33.0-35.0); MEAN CORPUSCULAR VOLUME 85.3 fL (80.0-100.0); MEAN PLATELET VOLUME 9.2 fL (7.4-11.0); MONOCYTES # (AUTO) 2.4 x10^3/uL (0.3-0.8); MONOCYTES % (AUTO) 5.8 % (0.0-13.0); NEUTROPHILS # (AUTO) 35.3 x10^3/uL (2.2-4.8); NEUTROPHILS % (AUTO) 85.8 % (42.0-75.0); RED BLOOD COUNT 3.53 X10^6/uL (3.5-5.4); RED CELL DISTRIBUTION WIDTH 16.1 % (11.6-16.5)
[2022-09-05 04:56] LABS: WHITE BLOOD COUNT 41.1 X10^3/uL (3.6-10.0)
[2022-09-05 05:02] LABS: ALANINE AMINOTRANSFERASE 18 Units/L (12-78); ALBUMIN 2.2 g/dL (3.4-5.0); ALKALINE PHOSPHATASE 92 Units/L (46-116); ASPARTATE AMINO TRANSFERASE 38 Units/L (15-37); BLOOD UREA NITROGEN 33 mg/dL (7-18); CALCIUM 8.5 mg/dL (8.5-10.1); CARBON DIOXIDE 26.1 mmol/L (21-32); CHLORIDE 101 mmol/L (98-107); COR CA(FOR HYPOALB) 9.9 mg/dL (8.5-10.1); COR NA(FOR HYPERGLY) 139 mmol/L (136-145); CREATININE 0.84 mg/dL (0.55-1.02); SODIUM 136 mmol/L (136-145); TOTAL PROTEIN 7.6 g/dL (6.4-8.2); eGFR NON BLACK RACES > 60 (>60)
[2022-09-05] MEDS: TOBRAMYCIN SULFATE 80 MG in NS 100 ML IV 98 ML IV SCH ×3 (05:10→21:29)
[2022-09-05] MEDS ORDERED: GLUCOPHAGE ONE (08:05)
[2022-09-05] MEDS: PLAVIX PO SCH (08:50)
[2022-09-05] MEDS: SYNTHROID 25 mcg TAB PO SCH (08:50)
[2022-09-05] MEDS: MAG-OX TAB PO SCH (08:50)
[2022-09-05] MEDS: ROCEPHIN VIAL 1 GRAM 1 G in NS 100 ML IV 100 ML IV SCH (08:50)
[2022-09-05] MEDS: PULMICORT NEB TX 0.5 MG NEB SCH ×2 (09:00→20:50)
[2022-09-05] MEDS: LOVENOX INJ 40 MG SYR SC SCH (09:00)
[2022-09-05] MEDS: DUONEB 0.5 MG/3 MG (3 mL) NEB SCH ×4 (09:00→20:50)
[2022-09-05] MEDS: HIPREX PO SCH ×2 (10:33→21:28)
[2022-09-05] MEDS: GLUCOPHAGE PO SCH (10:33)
[2022-09-05] MEDS: COREG TAB 3.125 MG PO SCH ×2 (10:33→21:27)
[2022-09-05] MEDS: JANUVIA PO SCH ×2 (10:34→21:28)
[2022-09-05] MEDS: PROTONIX TAB 40 MG PO SCH (10:34)
[2022-09-05] MEDS: ZINC SULFATE PO SCH (10:34)
[2022-09-05] MEDS: PATANOL 0.1% EYE DROPS OP SCH (10:34)
[2022-09-05] MEDS: ZyrTEC TAB 10 MG PO SCH (10:35)
[2022-09-05] MEDS: ZYLOPRIM PO SCH (10:35)
--- NOTE | 2022-09-05 10:57 | RAD ---
KUBHISTORY: ABD PAIN, ABD WOUNDStudy: 2 flat views of the abdomenComparison:NoneFindings: Extremely poor positioning limits evaluation.There is a normal bowel gas pattern.No free air..No abnormal calcifications or abnormal soft tissue shadows. No acute bony abnormalities.IMPRESSION:1.No evidence for acute abdominal pathology.Electronically signed by: VIVEK AGUIRRE (Sep 05, 2022 10:55:45)
--- NOTE | 2022-09-05 10:59 | RAD ---
CHEST, 1 VIEWHISTORY:PNEUMONIAStudy: Single view of the chest.Comparison:09/04/2022Findings:Diffuse interstitial opacities. Patchy airspace opacities in the right lung are unchanged. Osseous structures demonstrate no acute abnormality.IMPRESSION:1.Unchanged patchy right airspace opacities.Electronically signed by: VIVEK AGUIRRE (Sep 05, 2022 10:58:13)
[2022-09-05] MEDS: NovoLIN R (or HumuLIN R) SC PRN (13:17)
[2022-09-05] MEDS ORDERED: PHARMACY COMMENT IV NR ×2 (13:30→15:30)
[2022-09-05 13:51] LABS: CREATININE 0.89 mg/dL (0.55-1.02)
[2022-09-05 13:57] VITALS: BMI 20.4
[2022-09-05 14:08] LABS: TOBRAMYCIN,TROUGH 2.7 ug/mL (0-2)
[2022-09-05] MEDS: MORPHINE SULFATE INJ 2 MG INJ IVP PRN (19:58)
[2022-09-05] MEDS ORDERED: LEXAPRO ONE (20:16)
[2022-09-05] MEDS: SINGULAIR TAB 10 MG PO SCH (20:24)
[2022-09-05] MEDS: LIPITOR TAB 20 MG PO SCH (20:24)
[2022-09-05] MEDS: LEXAPRO PO SCH (20:25)
[2022-09-05] MEDS: LEVOPHED 8 MG/250 ML IV *PREMIX 8 MG/250 ML PLAST..BAG IV PRN (22:10)
[2022-09-06] MEDS: MORPHINE SULFATE INJ 2 MG INJ IVP PRN ×5 (00:02→20:44)
[2022-09-06] MEDS: ZOFRAN INJ 4 MG VIAL IVP PRN ×4 (00:14→23:21)
[2022-09-06 05:12] LABS: BASOPHILS # (AUTO) 0.1 X10^3/uL (0.0-0.1); BASOPHILS % (AUTO) 0.5 % (0.2-1.0); EOSINOPHILS # (AUTO) 0.2 x10^3/uL (0.0-0.2); EOSINOPHILS % (AUTO) 0.6 % (0.9-2.9); HEMATOCRIT 30.5 % (36.0-47.0); HEMOGLOBIN 9.9 g/dL (12.0-16.0); LYMPHOCYTES % (AUTO) 10.7 % (21.0-51.0); MEAN CORPUSCULAR HEMOGLOBIN 27.9 pg (27.0-34.0); MEAN CORPUSCULAR HGB CONC 32.6 g/dL (33.0-35.0); MEAN CORPUSCULAR VOLUME 85.8 fL (80.0-100.0); MEAN PLATELET VOLUME 9.4 fL (7.4-11.0); MONOCYTES % (AUTO) 7.1 % (0.0-13.0); NEUTROPHILS # (AUTO) 22.8 x10^3/uL (2.2-4.8); NEUTROPHILS % (AUTO) 81.1 % (42.0-75.0); RED BLOOD COUNT 3.55 X10^6/uL (3.5-5.4); RED CELL DISTRIBUTION WIDTH 16.6 % (11.6-16.5)
[2022-09-06 05:24] LABS: ALANINE AMINOTRANSFERASE 16 Units/L (12-78); ALBUMIN 1.9 g/dL (3.4-5.0); ALKALINE PHOSPHATASE 95 Units/L (46-116); ASPARTATE AMINO TRANSFERASE 28 Units/L (15-37); BLOOD UREA NITROGEN 15 mg/dL (7-18); CALCIUM 7.9 mg/dL (8.5-10.1); CARBON DIOXIDE 23.5 mmol/L (21-32); CHLORIDE 98 mmol/L (98-107); COR CA(FOR HYPOALB) 9.6 mg/dL (8.5-10.1); COR NA(FOR HYPERGLY) 135 mmol/L (136-145); CREATININE 0.69 mg/dL (0.55-1.02); SODIUM 132 mmol/L (136-145); TOTAL PROTEIN 6.9 g/dL (6.4-8.2); eGFR NON BLACK RACES > 60 (>60)
[2022-09-06 05:43] LABS: WHITE BLOOD COUNT 28.1 X10^3/uL (3.6-10.0)
[2022-09-06 05:44] LABS: PLATELET MORPHOLOGY COMMENT NORMAL (NORMAL)
[2022-09-06] MEDS: NovoLIN R (or HumuLIN R) SC PRN (05:48)
[2022-09-06] MEDS ORDERED: MICRO K EXTEN CAP 10 MEQ PO PRN (08:41)
[2022-09-06] MEDS ORDERED: K-DUR TAB 20 MEQ PO PRN (08:41)
[2022-09-06] MEDS ORDERED: POTASSIUM CHLORIDE LIQ 20 MEQ UDC PO PRN (08:41)
[2022-09-06] MEDS ORDERED: KLOR-CON PO PRN (08:41)
[2022-09-06] MEDS ORDERED: K-RIDER 10 MEQ/NS 100 ML 10 MEQ/100 ML BAG IV PRN (08:41)
[2022-09-06] MEDS ORDERED: POTASSIUM CHL 60 MEQ/NS 0.45% 500 ML IV PRN (08:41)
[2022-09-06] MEDS ORDERED: POTASSIUM CHL 40 MEQ/NS 0.45% 500 ML IV PRN (08:41)
[2022-09-06] MEDS: PATANOL 0.1% EYE DROPS OP SCH (09:15)
[2022-09-06] MEDS: LOVENOX INJ 40 MG SYR SC SCH (09:22)
[2022-09-06] MEDS: ROCEPHIN VIAL 1 GRAM 1 G in NS 100 ML IV 100 ML IV SCH (09:22)
[2022-09-06] MEDS: JANUVIA PO SCH ×2 (09:23→20:50)
[2022-09-06] MEDS: PLAVIX PO SCH (09:25)
[2022-09-06] MEDS: PROTONIX TAB 40 MG PO SCH (09:26)
[2022-09-06] MEDS: ZINC SULFATE PO SCH (09:27)
[2022-09-06] MEDS: ZyrTEC TAB 10 MG PO SCH (09:29)
[2022-09-06] MEDS: SYNTHROID 25 mcg TAB PO SCH (09:29)
[2022-09-06] MEDS: ZYLOPRIM PO SCH (09:30)
[2022-09-06] MEDS: HIPREX PO SCH ×2 (09:33→21:02)
[2022-09-06] MEDS: PULMICORT NEB TX 0.5 MG NEB SCH ×2 (09:36→20:05)
[2022-09-06] MEDS: DUONEB 0.5 MG/3 MG (3 mL) NEB SCH ×4 (09:36→20:05)
[2022-09-06] MEDS: MAG-OX TAB PO SCH (09:40)
[2022-09-06] MEDS: D5 1/2 NS 1,000 ML 1,000 ML IV SCH ×2 (09:42→12:35)
[2022-09-06] MEDS: COREG TAB 3.125 MG PO SCH ×2 (09:42→21:02)
[2022-09-06] MEDS: GLUCOPHAGE PO SCH ×3 (09:43→17:59)
[2022-09-06] MEDS: TOBRAMYCIN SULFATE 80 MG in NS 100 ML IV 98 ML IV SCH ×2 (10:25→20:45)
[2022-09-06] MEDS: MAGNESIUM SULFATE 1 GRAM/100 mL PREMIX 1 G/100 ML BAG IV PRN ×4 (12:31→16:30)
[2022-09-06] MEDS ORDERED: LEXAPRO ONE (20:06)
[2022-09-06] MEDS: LEXAPRO PO SCH (20:48)
[2022-09-06] MEDS: SINGULAIR TAB 10 MG PO SCH (20:50)
[2022-09-06] MEDS: LIPITOR TAB 20 MG PO SCH (20:50)
[2022-09-06] MEDS: NS 1,000 ML IV 1,000 ML IV SCH (20:59)
[2022-09-07] MEDS: MORPHINE SULFATE INJ 2 MG INJ IVP PRN (00:31)
[2022-09-07] MEDS ORDERED: PATIENT'S HOME MEDICATION TOP SCH (02:30)
[2022-09-07 05:14] LABS: HEMOGLOBIN 9.6 g/dL (12.0-16.0)
[2022-09-07 05:19] LABS: BASOPHILS # (AUTO) 0.1 X10^3/uL (0.0-0.1); BASOPHILS % (AUTO) 0.5 % (0.2-1.0); EOSINOPHILS # (AUTO) 0.4 x10^3/uL (0.0-0.2); HEMATOCRIT 29.2 % (36.0-47.0); LYMPHOCYTES # (AUTO) 2.3 X10^3/uL (1.3-2.9); LYMPHOCYTES % (AUTO) 12.8 % (21.0-51.0); MEAN CORPUSCULAR HEMOGLOBIN 27.9 pg (27.0-34.0); MEAN CORPUSCULAR HGB CONC 32.9 g/dL (33.0-35.0); MEAN CORPUSCULAR VOLUME 84.9 fL (80.0-100.0); MEAN PLATELET VOLUME 8.9 fL (7.4-11.0); MONOCYTES # (AUTO) 1.6 x10^3/uL (0.3-0.8); MONOCYTES % (AUTO) 9.1 % (0.0-13.0); NEUTROPHILS # (AUTO) 13.3 x10^3/uL (2.2-4.8); NEUTROPHILS % (AUTO) 75.6 % (42.0-75.0); RED BLOOD COUNT 3.44 X10^6/uL (3.5-5.4)
[2022-09-07 05:20] LABS: WHITE BLOOD COUNT 17.7 X10^3/uL (3.6-10.0)
[2022-09-07 05:24] LABS: ALANINE AMINOTRANSFERASE 12 Units/L (12-78); ALBUMIN 1.8 g/dL (3.4-5.0); ALKALINE PHOSPHATASE 95 Units/L (46-116); ASPARTATE AMINO TRANSFERASE 20 Units/L (15-37); BLOOD UREA NITROGEN 13 mg/dL (7-18); CALCIUM 7.5 mg/dL (8.5-10.1); CARBON DIOXIDE 25.2 mmol/L (21-32); CHLORIDE 98 mmol/L (98-107); COR CA(FOR HYPOALB) 9.3 mg/dL (8.5-10.1); COR NA(FOR HYPERGLY) 133 mmol/L (136-145); CREATININE 0.66 mg/dL (0.55-1.02); SODIUM 131 mmol/L (136-145); TOTAL PROTEIN 6.6 g/dL (6.4-8.2); eGFR NON BLACK RACES > 60 (>60)
[2022-09-07] MEDS: LEVOPHED 8 MG/250 ML IV *PREMIX 8 MG/250 ML PLAST..BAG IV PRN (06:13)
[2022-09-07] MEDS: HIPREX PO SCH ×2 (09:05→20:36)
[2022-09-07] MEDS: ROCEPHIN VIAL 1 GRAM 1 G in NS 100 ML IV 100 ML IV SCH (09:06)
[2022-09-07] MEDS: SYNTHROID 25 mcg TAB PO SCH (09:11)
[2022-09-07] MEDS: DUONEB 0.5 MG/3 MG (3 mL) NEB SCH ×4 (09:11→20:15)
[2022-09-07] MEDS: PULMICORT NEB TX 0.5 MG NEB SCH ×2 (09:11→20:15)
[2022-09-07] MEDS: PLAVIX PO SCH (09:12)
[2022-09-07] MEDS: MAG-OX TAB PO SCH (09:13)
[2022-09-07] MEDS: ZINC SULFATE PO SCH (09:13)
[2022-09-07] MEDS: ZyrTEC TAB 10 MG PO SCH (09:13)
[2022-09-07] MEDS: ZYLOPRIM PO SCH (09:13)
[2022-09-07] MEDS: PROTONIX TAB 40 MG PO SCH (09:13)
[2022-09-07] MEDS: LOVENOX INJ 40 MG SYR SC SCH (09:13)
[2022-09-07] MEDS: PATANOL 0.1% EYE DROPS OP SCH (09:13)
[2022-09-07] MEDS: JANUVIA PO SCH ×2 (09:14→20:29)
[2022-09-07] MEDS: TOBRAMYCIN SULFATE 80 MG in NS 100 ML IV 98 ML IV SCH (12:00)
[2022-09-07] MEDS: NovoLIN R (or HumuLIN R) SC PRN (12:48)
[2022-09-07] MEDS: NS 1,000 ML IV 1,000 ML IV SCH ×3 (12:56→23:54)
[2022-09-07] MEDS: COREG TAB 3.125 MG PO SCH ×2 (12:56→20:36)
[2022-09-07] MEDS ORDERED: PULMICORT NEB TX 0.5 MG NEB ONE (19:05)
[2022-09-07 20:05] LABS: CREATININE 0.75 mg/dL (0.55-1.02)
[2022-09-07] MEDS ORDERED: LEXAPRO ONE (20:08)
[2022-09-07 20:10] LABS: TOBRAMYCIN,TROUGH 3.5 ug/mL (0-2)
[2022-09-07] MEDS ORDERED: PHARMACY CONSULT - TOBRAMYCIN XX SCH (20:10)
[2022-09-07] MEDS: LEXAPRO PO SCH (20:27)
[2022-09-07] MEDS: LIPITOR TAB 20 MG PO SCH (20:27)
[2022-09-07] MEDS: SINGULAIR TAB 10 MG PO SCH (20:29)
[2022-09-07] MEDS ORDERED: PHARMACY COMMENT IV NR (20:30)
[2022-09-08 05:20] LABS: BASOPHILS # (AUTO) 0.1 X10^3/uL (0.0-0.1); BASOPHILS % (AUTO) 0.8 % (0.2-1.0); EOSINOPHILS # (AUTO) 0.5 x10^3/uL (0.0-0.2); EOSINOPHILS % (AUTO) 3.9 % (0.9-2.9); HEMATOCRIT 28.2 % (36.0-47.0); HEMOGLOBIN 9.3 g/dL (12.0-16.0); LYMPHOCYTES # (AUTO) 1.6 X10^3/uL (1.3-2.9); LYMPHOCYTES % (AUTO) 12.4 % (21.0-51.0); MEAN CORPUSCULAR HEMOGLOBIN 28.3 pg (27.0-34.0); MEAN CORPUSCULAR HGB CONC 33.1 g/dL (33.0-35.0); MEAN CORPUSCULAR VOLUME 85.6 fL (80.0-100.0); MONOCYTES # (AUTO) 1.2 x10^3/uL (0.3-0.8); MONOCYTES % (AUTO) 8.9 % (0.0-13.0); NEUTROPHILS # (AUTO) 9.7 x10^3/uL (2.2-4.8); RED CELL DISTRIBUTION WIDTH 16.1 % (11.6-16.5); WHITE BLOOD COUNT 13.1 X10^3/uL (3.6-10.0)
[2022-09-08 05:30] LABS: ALANINE AMINOTRANSFERASE 13 Units/L (12-78); ALBUMIN 1.7 g/dL (3.4-5.0); ALKALINE PHOSPHATASE 91 Units/L (46-116); ASPARTATE AMINO TRANSFERASE 17 Units/L (15-37); BLOOD UREA NITROGEN 11 mg/dL (7-18); CALCIUM 7.3 mg/dL (8.5-10.1); CARBON DIOXIDE 25.4 mmol/L (21-32); CHLORIDE 101 mmol/L (98-107); COR CA(FOR HYPOALB) 9.1 mg/dL (8.5-10.1); COR NA(FOR HYPERGLY) 136 mmol/L (136-145); CREATININE 0.61 mg/dL (0.55-1.02); SODIUM 134 mmol/L (136-145); TOTAL PROTEIN 6.3 g/dL (6.4-8.2); eGFR NON BLACK RACES > 60 (>60)
[2022-09-08] MEDS ORDERED: TOBRAMYCIN SULFATE 80 MG in NS 100 ML IV 98 ML IV SCH (09:00)
[2022-09-08 09:14] LABS: CREATININE 0.75 mg/dL (0.55-1.02); TOBRAMYCIN,TROUGH 1.1 ug/mL (0-2)
[2022-09-08] MEDS: DUONEB 0.5 MG/3 MG (3 mL) NEB SCH ×4 (09:14→22:10)
[2022-09-08] MEDS: PULMICORT NEB TX 0.5 MG NEB SCH ×2 (09:14→22:10)
--- NOTE | 2022-09-08 09:15 | RAD ---
HISTORYPneumoniaSTUDYAP chestCOMPARISONFebruary 2022FINDINGSIncreasing infiltrates noted in the left lung with stable extent and distribution of right-sided airspace disease. Heart size similar and stable position of left subclavian port.IMPRESSIONPersistent bilateral infiltrates/pneumonia with slight interval progression in the left lung.Electronically signed by: JERAMIE RIOS (Sep 08, 2022 09:13:18)
[2022-09-08] MEDS: JANUVIA PO SCH ×2 (09:50→20:18)
[2022-09-08] MEDS: MAG-OX TAB PO SCH (09:50)
[2022-09-08] MEDS: PLAVIX PO SCH (09:50)
[2022-09-08] MEDS: PROTONIX TAB 40 MG PO SCH (09:51)
[2022-09-08] MEDS: ZINC SULFATE PO SCH (09:51)
[2022-09-08] MEDS: SYNTHROID 25 mcg TAB PO SCH (09:52)
[2022-09-08] MEDS: ROCEPHIN VIAL 1 GRAM 1 G in NS 100 ML IV 100 ML IV SCH (09:52)
[2022-09-08] MEDS: ZYLOPRIM PO SCH (09:52)
[2022-09-08] MEDS: COREG TAB 3.125 MG PO SCH ×2 (09:52→20:20)
[2022-09-08] MEDS: LOVENOX INJ 40 MG SYR SC SCH (09:52)
[2022-09-08] MEDS: HIPREX PO SCH ×2 (09:53→20:21)
[2022-09-08] MEDS: ZyrTEC TAB 10 MG PO SCH (09:53)
[2022-09-08] MEDS: PATANOL 0.1% EYE DROPS OP SCH (09:55)
[2022-09-08] MEDS: NS 1,000 ML IV 1,000 ML IV SCH ×2 (09:56→14:30)
[2022-09-08] MEDS: ROXICODONE TAB 5 MG PO PRN (13:12)
[2022-09-08] MEDS: MERREM VIAL 500 MG in NS 100 ML IV 100 ML IV SCH ×2 (13:29→21:32)
[2022-09-08] MEDS: MORPHINE SULFATE INJ 2 MG INJ IVP PRN (14:29)
[2022-09-08] MEDS: NovoLIN R (or HumuLIN R) SC PRN (17:09)
[2022-09-08] MEDS ORDERED: LEXAPRO ONE (19:41)
[2022-09-08] MEDS: SINGULAIR TAB 10 MG PO SCH (20:19)
[2022-09-08] MEDS: LEXAPRO PO SCH (20:19)
[2022-09-08] MEDS: LIPITOR TAB 20 MG PO SCH (20:20)
[2022-09-08] MEDS: ZYVOX 600MG IV 600 MG/300 ML BAG IV SCH (20:21)
[2022-09-08] MEDS: ZOFRAN INJ 4 MG VIAL IVP PRN (20:26)
[2022-09-09] MEDS: ROXICODONE TAB 5 MG PO PRN (01:41)
[2022-09-09] MEDS ORDERED: VISTARIL PO PRN (02:50)
[2022-09-09] MEDS: NS 1,000 ML IV 1,000 ML IV SCH ×2 (03:30→14:47)
[2022-09-09 05:09] LABS: BASOPHILS % (AUTO) 0.2 % (0.2-1.0); HEMATOCRIT 31.6 % (36.0-47.0); HEMOGLOBIN 10.4 g/dL (12.0-16.0); LYMPHOCYTES # (AUTO) 0.7 X10^3/uL (1.3-2.9); LYMPHOCYTES % (AUTO) 5.9 % (21.0-51.0); MEAN CORPUSCULAR HEMOGLOBIN 28.1 pg (27.0-34.0); MEAN CORPUSCULAR HGB CONC 32.8 g/dL (33.0-35.0); MEAN CORPUSCULAR VOLUME 85.7 fL (80.0-100.0); MEAN PLATELET VOLUME 9.2 fL (7.4-11.0); MONOCYTES # (AUTO) 0.3 x10^3/uL (0.3-0.8); MONOCYTES % (AUTO) 2.6 % (0.0-13.0); NEUTROPHILS # (AUTO) 10.7 x10^3/uL (2.2-4.8); NEUTROPHILS % (AUTO) 91.3 % (42.0-75.0); RED BLOOD COUNT 3.68 X10^6/uL (3.5-5.4); RED CELL DISTRIBUTION WIDTH 16.3 % (11.6-16.5); WHITE BLOOD COUNT 11.8 X10^3/uL (3.6-10.0)
[2022-09-09] MEDS: MERREM VIAL 500 MG in NS 100 ML IV 100 ML IV SCH (05:17)
[2022-09-09 05:22] LABS: ALANINE AMINOTRANSFERASE 112 Units/L (12-78); ALBUMIN 1.9 g/dL (3.4-5.0); ALKALINE PHOSPHATASE 92 Units/L (46-116); ASPARTATE AMINO TRANSFERASE 186 Units/L (15-37); BLOOD UREA NITROGEN 10 mg/dL (7-18); CALCIUM 7.6 mg/dL (8.5-10.1); CHLORIDE 99 mmol/L (98-107); COR CA(FOR HYPOALB) 9.3 mg/dL (8.5-10.1); COR NA(FOR HYPERGLY) 135 mmol/L (136-145); CREATININE 0.77 mg/dL (0.55-1.02); SODIUM 132 mmol/L (136-145); eGFR NON BLACK RACES > 60 (>60)
[2022-09-09 06:05] LABS: BAND NEUTROPHILS % 3 % (0-10)
[2022-09-09 06:06] LABS: PLATELET MORPHOLOGY COMMENT NORMAL (NORMAL)
[2022-09-09] MEDS: MORPHINE SULFATE INJ 2 MG INJ IVP PRN (08:20)
[2022-09-09] MEDS: ZYVOX 600MG IV 600 MG/300 ML BAG IV SCH (08:43)
[2022-09-09] MEDS: COREG TAB 3.125 MG PO SCH (09:06)
[2022-09-09] MEDS: ZYLOPRIM PO SCH (09:06)
[2022-09-09] MEDS: ZyrTEC TAB 10 MG PO SCH (09:06)
[2022-09-09] MEDS: PROTONIX TAB 40 MG PO SCH (09:06)
[2022-09-09] MEDS: PLAVIX PO SCH (09:06)
[2022-09-09] MEDS: ZINC SULFATE PO SCH (09:06)
[2022-09-09] MEDS: SYNTHROID 25 mcg TAB PO SCH (09:06)
[2022-09-09] MEDS: JANUVIA PO SCH (09:07)
[2022-09-09] MEDS: LOVENOX INJ 40 MG SYR SC SCH (09:07)
[2022-09-09] MEDS: MAG-OX TAB PO SCH (09:07)
[2022-09-09] MEDS: DUONEB 0.5 MG/3 MG (3 mL) NEB SCH ×2 (09:08→13:48)
[2022-09-09] MEDS: PULMICORT NEB TX 0.5 MG NEB SCH (09:08)
[2022-09-09] MEDS ORDERED: TORADOL 30 MG VIAL IVP PRN (09:39)
[2022-09-09] MEDS ORDERED: NS 500 ML IV 500 ML IV ONE (09:40)
[2022-09-09] MEDS: PATANOL 0.1% EYE DROPS OP SCH (14:23)
[2022-09-09] MEDS: HIPREX PO SCH (14:23)
[2022-09-09 14:27] VITALS: BP 105/62
== END 2022-09-09 14:30 | disposition hospice, inpatient (51) | DRG 871 ==
LOC: ER 08:27 → U 10:58 → MED/SURG 16:12 → ICU 18:05
PROVIDERS: ADMIT Internal Medicine; ATTEND Internal Medicine
DX: Z20.822 Contact with and (suspected) exposure to COVID-19; Z66 Do not resuscitate; J13 Pneumonia due to Streptococcus pneumoniae; B96.5 Pseudomonas (aeruginosa) (mallei) (pseudomallei) as the cause of diseases classified elsewhere; S30.92XA Unspecified superficial injury of abdominal wall, initial encounter; X58.XXXA Exposure to other specified factors, initial encounter; R62.7 Adult failure to thrive; R00.0 Tachycardia, unspecified; R41.82 Altered mental status, unspecified; Y92.9 Unspecified place or not applicable; K21.9 Gastro-esophageal reflux disease without esophagitis; M19.90 Unspecified osteoarthritis, unspecified site; B37.89 Other sites of candidiasis; E87.1 Hypo-osmolality and hyponatremia; E11.65 Type 2 diabetes mellitus with hyperglycemia; I10 Essential (primary) hypertension; I95.89 Other hypotension; N39.0 Urinary tract infection, site not specified; A41.1 Sepsis due to other specified staphylococcus; E03.8 Other specified hypothyroidism; I25.10 Atherosclerotic heart disease of native coronary artery without angina pectoris

== ENCOUNTER 2022-09-09 14:31 | Inpatient (IN) ==
[2022-09-09] MEDS ORDERED: LEVSIN ORAL DROPS PO PRN (16:39)
[2022-09-09] MEDS ORDERED: ISOPTO ATROPINE SL PRN (17:16)
[2022-09-09] MEDS: NS 1,000 ML IV 1,000 ML IV SCH (18:00)
[2022-09-09] MEDS ORDERED: MORPHINE SULFATE INJ 2 MG INJ IVP PRN (19:25)
[2022-09-09] MEDS ORDERED: VISTARIL PO PRN (19:29)
[2022-09-09] MEDS ORDERED: ZOFRAN INJ 4 MG VIAL ONE (19:33)
[2022-09-09] MEDS: ZOFRAN INJ 4 MG VIAL IVP PRN (19:45)
[2022-09-09] MEDS: ATIVAN TAB 0.5 MG PO PRN (20:49)
[2022-09-10] MEDS: NS 1,000 ML IV 1,000 ML IV SCH (17:10)
[2022-09-11] MEDS: ZOFRAN INJ 4 MG VIAL IVP PRN ×2 (06:14→20:58)
[2022-09-11] MEDS: ATIVAN TAB 0.5 MG PO PRN (06:57)
[2022-09-11 14:46] VITALS: BMI 26.6
[2022-09-11] MEDS ORDERED: MORPHINE SULFATE ORAL SOLN CONC ONE (14:51)
[2022-09-11] MEDS: MORPHINE SULFATE ORAL SOLN CONC PO PRN ×2 (14:57→18:13)
[2022-09-11] MEDS: TORADOL 30 MG VIAL IVP PRN (21:54)
[2022-09-12] MEDS: MORPHINE SULFATE ORAL SOLN CONC PO PRN ×4 (01:36→19:38)
[2022-09-12] MEDS: ATIVAN TAB 0.5 MG PO PRN ×2 (10:35→14:58)
[2022-09-12] MEDS: TORADOL 30 MG VIAL IVP PRN (10:35)
[2022-09-13] MEDS: MORPHINE SULFATE ORAL SOLN CONC PO PRN ×3 (03:16→21:27)
[2022-09-13] MEDS: ATIVAN TAB 0.5 MG PO PRN ×2 (13:23→21:27)
[2022-09-13] MEDS: TORADOL 30 MG VIAL IVP PRN (15:43)
[2022-09-13] MEDS ORDERED: COLACE CAP 100 MG PO SCH (21:00)
[2022-09-13] MEDS: MILK OF MAGNESIA PO SCH (21:26)
[2022-09-14] MEDS: MORPHINE SULFATE ORAL SOLN CONC PO PRN ×2 (06:00→10:52)
[2022-09-14 08:12] VITALS: BP 108/62
[2022-09-14] MEDS: MILK OF MAGNESIA PO SCH (09:08)
[2022-09-14] MEDS: TORADOL 30 MG VIAL IVP PRN (09:08)
[2022-09-14] MEDS: ATIVAN TAB 0.5 MG PO PRN (10:52)
== END 2022-09-14 12:30 | disposition hospice, home (50) | DRG 871 ==
LOC: EDACCT# → MED/SURG 15:58
PROVIDERS: ADMIT Internal Medicine; ATTEND Internal Medicine
DX: R41.82 Altered mental status, unspecified; R62.7 Adult failure to thrive; Z20.822 Contact with and (suspected) exposure to COVID-19; N39.0 Urinary tract infection, site not specified; A41.1 Sepsis due to other specified staphylococcus; J13 Pneumonia due to Streptococcus pneumoniae; Z51.5 Encounter for palliative care